=== PATIENT | male | born 1985 | race Hispanic/Latino ===

== ENCOUNTER 2018-05-17 12:05 | Emergency (ER) | payer MEDICARE ==
[2018-05-17] MEDS ORDERED: SULFAMETHOX-TMP DS 800/160 TAB ONE (12:45)
[2018-05-17] MEDS ORDERED: CEPHALEXIN 500 MG CAPSULE ONE (12:45)
== END 2018-05-17 12:58 | disposition home or self-care (01) ==
LOC: EDH 12:05
DX: L02.415 Cutaneous abscess of right lower limb (principal); E78.5 Hyperlipidemia, unspecified; Z88.6 Allergy status to analgesic agent